=== PATIENT | female | born 1955 | race Caucasian/White ===

== ENCOUNTER 2018-04-08 09:13 | Outpatient (CLI) | payer BC ==
--- NOTE | 2018-04-08 11:09 | RAD ---
LEFT RIBS 2 VIEWS: HISTORY: A 62-year-old female with sprain of ribs, sharp pain left side. FINDINGS: No evidence for overt acute displaced rib fracture. No pneumothorax or pleural effusion. IMPRESSION: No evidence for acute rib fracture. No pleural effusion, pneumothorax, or other acute process. POS: [facility]
== END 2018-04-08 09:14 | disposition home or self-care (01) ==
LOC: BICRAD 09:13
PROVIDERS: ATTEND Family Medicine
DX: S23.41XA Sprain of ribs, initial encounter (principal)